=== PATIENT | male | born 1955 | race Caucasian/White ===

== ENCOUNTER → 2022-04-15 | Outpatient (CLI) | payer MEDICARE ==
--- NOTE | 2022-04-15 09:51 | MR ---
EXAMINATION TYPE: MR lumbar spine wo con DATE OF EXAM: 04/15/2022 COMPARISON: NONE HISTORY: Low back pain that radiates into left and right buttocks, low back popping occasionally. TECHNIQUE: T1 and T2 axial and sagittal images of the lumbar spine are submitted. FINDINGS: There is no abnormal signal seen within the visualized spinal cord or paraspinal soft tissu es. Vertebral body hemangioma at L2. Simple appearing left renal peripelvic cyst. At L1-2 there is no disc herniation or canal stenosis. No foraminal encroachment. No degenerative dis c disease. At L2-3 there is no disc herniation or canal stenosis. No foraminal encroachment mildly hypertrophic facets. No degenerative disc disease. At L3-4 there is no degenerative disc disease. There is advanced hypertrophic facet arthropathy. Mild central disc bulging and spinal canal resulting in mild effacement of thecal sac. Mild bilateral for aminal encroachment. At L4-5 there is degenerative disc disease with advanced facet arthropathy. There is no canal stenosi s. Mild broad-based disc bulging. Mild bilateral foraminal encroachment. At L5-S1 there is severe degenerative disc disease with grade 1 anterolisthesis likely secondary to a dvanced facet arthropathy. Neural foramina demonstrate mild encroachment bilaterally. Is mild broad-b ased disc bulge and posteriorly. IMPRESSION: 1. Multilevel degenerative disc disease most marked at L5-S1 with severe facet arthropathy results in a grade 1 anterolisthesis and mild bilateral foraminal protrusion. Mild broad-based disc bulging see n with effacement of thecal sac and anterior margin of the nerve roots. 2. Broad-based disc protrusion at L3-L4 with mild facet mass effect upon the thecal sac and bilateral foraminal encroachment. 3. Severe degenerative disc disease L4-L5 with vacuum disc. Advanced facet arthropathy resulting in l ateral recess stenosis and moderate bilateral foraminal
== END | disposition home or self-care (01) ==
LOC: RADMRIMAIN 07:47
PROVIDERS: ATTEND Family Medicine
DX: M51.36 Other intervertebral disc degeneration, lumbar region (principal); M43.16 Spondylolisthesis, lumbar region; M47.816 Spondylosis without myelopathy or radiculopathy, lumbar region; M48.061 Spinal stenosis, lumbar region without neurogenic claudication
CPT/HCPCS: 72148